=== PATIENT | female | born 1960 | race Caucasian/White ===

== ENCOUNTER → 2024-11-08 | Outpatient (CLI) | payer MEDICARE, SELFPAY ==
--- NOTE | 2024-11-08 | XR_ITS ---
Examination: Wrist, left 3 views Technique: Wrist AP, oblique, lateral 3 views Date and time of exam: November 08, 2024 at 1159 hours INDICATIONS: Patient fell last week with injury of the wrist, wrist pain. FINDINGS: Significant osteopenia No fracture or dislocation Moderate arthritic change first carpometacarpal joint IMPRESSION: No acute fracture
--- NOTE | 2024-11-08 | XR_ITS ---
Examination: Hand, left 3 views Technique: Hand AP, oblique, lateral 3 views Date and time of exam: November 08, 2024 1159 hours INDICATIONS: Patient fell last week with injury to the left hand, left hand pain. FINDINGS: Significant osteopenia Moderate arthritic change first carpometacarpal joint No acute fracture IMPRESSION: No acute fracture
== END | disposition home or self-care (01) ==
DX: M18.12 Unilateral primary osteoarthritis of first carpometacarpal joint, left hand (principal)
CPT/HCPCS: 73110; 73130